=== PATIENT | female | born 1950 | race Two or more races ===

== ENCOUNTER 2019-02-11 18:46 | Inpatient (IN) | payer MEDICARE, OTHER ==
[~2019-02-11] VITALS: Ht 162.6 cm; Wt 100.7 kg
[2019-02-11] MEDS ORDERED: MORPHINE SULFATE 4 MG/ML SYR/VIAL IV ONE (19:00)
[2019-02-11] MEDS ORDERED: SODIUM CHLORIDE 0.9% 1,000 ML IV ONE (19:00)
[2019-02-11] MEDS ORDERED: ONDANSETRON HCL 4 MG/2 ML VIAL IV ONE (19:15)
[2019-02-11] MEDS ORDERED: fentaNYL CITRATE 100 MCG/2 ML VL ONE (19:17)
[2019-02-11] MEDS ORDERED: ANGIOMAX 250 MG VIAL IV ONE ×2 (19:17→20:14)
[2019-02-11] MEDS ORDERED: LIDOCAINE 2%HCL (LOCAL ANESTH.) INJ 20ML MDV ONE (19:18)
[2019-02-11] MEDS ORDERED: IOHEXOL 350 MG/ML 100ML IJ ONE (19:18)
[2019-02-11] MEDS ORDERED: SODIUM CHL 0.9% 50 ML ONE ×2 (19:18→20:14)
[2019-02-11] MEDS ORDERED: MIDAZOLAM HCL 1MG/1ML-2 ML VIAL ONE (19:18)
[2019-02-11 19:33] LABS: Basophils # (auto) 0.1 uL; Basophils % (auto) 0.6 % (0.0-2.0); Eosinophils # (auto) 0.3 uL; Eosinophils % (auto) 2.4 % (0.0-7.0); Hematocrit 44.2 % (36.0-46.0); Hemoglobin 14.3 g/dL (12.2-16.2); Lymphocytes # (auto) 4.3 uL; Lymphocytes % (auto) 32.5 % (10.0-50.0); Mean Corpuscular Hemoglobin 27.9 pg (28.0-32.0); Mean Corpuscular Hgb Conc. 32.4 g/dL (32.0-36.0); Mean Corpuscular Volume 86.1 fL (80.0-100.0); Monocytes % (auto) 7.7 % (0.0-12.0); Neutrophils # (auto) 7.4 uL; Neutrophils % (auto) 56.8 % (37.0-80.0); Nucleated Red Blood Cells % 0.1 %; Platelet Count (auto) 317 10^3/uL (140-450); Red Blood Cells 5.14 10^6/uL (4.0-5.20); Red Cell Distribution Width 14.3 % (11.8-14.3); White Blood Cell 13.1 10^3/uL (4.4-10.8)
[2019-02-11] MEDS ORDERED: ADENOSINE 6 MG/2 ML INJ IV ONE (19:36)
[2019-02-11] MEDS ORDERED: EPTIFIBATIDE INJ (2MG/ML) 10ML VIAL IV ONE (19:37)
[2019-02-11] MEDS ORDERED: NICARDIPINE 25 MG/10 ML VIAL IV ONE (19:41)
[2019-02-11 19:42] LABS: INR 0.89 (0.9-1.15); Partial Thromboplastin Time 25.1 sec (23.64-32.05)
[2019-02-11 19:45] LABS: Albumin 3.9 g/dL (3.4-5.0); Calcium 8.9 mg/dL (8.5-10.1); Magnesium 2.4 mg/dL (1.6-2.6); Potassium 3.8 mmol/L (3.5-5.1)
[2019-02-11] MEDS ORDERED: ATROPINE SULFATE 1 MG/1 ML VIAL ONE ×2 (19:45→19:49)
[2019-02-11 19:47] LABS: BUN/Creatinine Ratio 15.1; Bilirubin, Total 0.7 mg/dL (0.2-1.0); Total Protein 7.5 g/dL (6.4-8.2)
[2019-02-11] MEDS ORDERED: EPINEPHrine HCL 1 MG/10 ML SYRG ONE (19:48)
[2019-02-11] MEDS ORDERED: DOPamine 1600MCG/ML D5W 0 ML IV ONE (19:50)
[2019-02-11] MEDS ORDERED: ASPirin 325 MG TAB ONE (20:20)
[2019-02-11] MEDS ORDERED: TICAGRELOR 90 MG TAB ONE (20:20)
[2019-02-11] MEDS ORDERED: MORPHINE SULF INJ 2 MG/ML SYRINGE 1ML IV PRN (20:45)
[2019-02-11] MEDS ORDERED: NITROGLYCERIN 0.4 MG SL TAB SL PRN (20:45)
[2019-02-11] MEDS ORDERED: SODIUM CHL 0.9% 500 ML IV ONE (20:45)
--- NOTE | 2019-02-11 21:15 | NUR ---
RECEIVED REPORT FROM DRY HEAT CABINET ATTENDANT RN ASSUMED CARE OF FEMALE PATIENT BROUGHT INTO ICU FROM DRY HEAT CABINET ATTENDANT.PT IS ON NC AT 2 L. A&O X4. FOLLOWS COMMANDS. PT IS HOOKED UP TO ICU MONITORS VS WNL. SR 96 , O2 SATURATION IS 96%. RESPIRATIONS EVEN AND UNLABORED. IV LINE TO R AC, IV TO L FOREARM, IVS ARE PATENT AND FLUSHES, NO SS OF REDNESS OR SWELLING. PT STATS PAIN 0/10. NO SS OF DISTRESS, VS WNL. RADIAL PULSES PALPABLE BILATERALLY, LOWER EXTREMITIES PULSES PALPABLE BILATERALLY. Closure of the artery following catheterization was achieved with the Myn[employer] device without complicatiON, CLEAN AND DRY. WILL CONTINUE TO ASSESS FOR BLEEDING AND OR COMPLICATIONS. BED IS IN THE LOWEST POSITION, WHEELS LOCKED, 2 SIDE RAILS UP, CALL LIGHT WITH IN REACH, PT INFORMED HOW TO USE THE CALL LIGHT AND TO CALL IF THE PT NEEDS ANYTHING AT ALL, PT VERBALIZED UNDERSTANDING. PT WITH IN FULL VIEW OF NURSES STATION WILL CONTINUE TO CARE FOR AND MONITOR.
[2019-02-11 21:30] VITALS: BP 155/92
[2019-02-11 22:00] VITALS: BP 155/92
[2019-02-11 23:00] VITALS: BP 155/77
[2019-02-11] MEDS: METOPROLOL TARTRATE 25 MG TAB PO SCH (23:01)
[2019-02-11] MEDS: TICAGRELOR 90 MG TAB PO SCH (23:01)
--- NOTE | 2019-02-11 23:30 | NUR ---
CRITICAL LAB VALUE TROPONIN IS 20.0, MD NOT CALLED DUE TO ELEVATED TROPONIN IS EXPECTED AFTER CARDIAC PROCEDURE. PT IS ASYMPTOMATIC. IF ELEVATED ABOVE 100 WILL CALL MD. WILL CONTINUE TO MONITOR LAB VALUE.
[2019-02-12] VITALS (18 sets, daily range): BP systolic 116–158; BP diastolic 56–94
[2019-02-12] MEDS ORDERED: MORPHINE SULF INJ 2 MG/ML SYRINGE 1ML IV PRN (02:00)
[2019-02-12] MEDS ORDERED: ONDANSETRON ODT 4 MG TAB PO PRN (02:00)
[2019-02-12] MEDS ORDERED: HYDROcodone-ACET 5/325MG TAB PO PRN (02:00)
--- NOTE | 2019-02-12 02:49 | NUR ---
CRITICAL LAB VALUE TROPONIN IS 80.300, NOT CALLED DUE TO ELEVATED TROPONIN IS EX[ECTE
--- NOTE | 2019-02-12 02:52 | NUR ---
CRITICAL LAB VALUE TROPONIN IS 80.300, NOT CALLED DUE TO ELEVATED TROPONIN IS EXPECTED. WILL CONTINUE TO MONITOR LAB VALUE. Addendum: 02/12/19 at 0259 by JEFF WOMACK RN RN CRITICAL LAB VALUE TROPONIN IS 80.300, NOT CALLED DUE TO ELEVATED TROPONIN IS EXPECTED AFTER CARDIAC PROCEDURE. PT IS ASYMPTOMATIC. NO SS OF DISTRESS, VS WNL. IF ELEVATED ABOVE 100 WILL CALL MD. WILL CONTINUE TO MONITOR LAB VALUE
--- NOTE | 2019-02-12 03:40 | NUR ---
HYGIENE PARTIAL BED BATH PROVIDED, LINEN CHANGE PREFORMED, SKIN ASSESSED FOR INTEGRITY CHANGES, NONE NOTED. SUCTION CANISTERS AND TUBING CHANGED. REPOSITIONED PT FOR COMFORT AND SAFETY. PT TOLERATED CARE. WILL CONTINUE TO CARE FOR AND MONITOR.
--- NOTE | 2019-02-12 04:59 | NUR ---
PT WALKED ASSISTED PT TO EDGE OF BED TO LET FEET DANGLE. PT STATED SHE WAS READY TO TRY TO STAND UP AND WALK. MYNX DEVICE IS CLEAN AND DRY. NO BLEEDING OR SWELLING AROUND DECEIVE OR IN THE VICINITY. ASSISTED PT WITH STANDING AND WALKED PT TO BEDROOM COMMODE.PT USED THE REST ROOM AND THEN STATED SHE FELT LIGHT HEADED AND WANTED TO GET BACK INTO BED. ASSISTED PT BACK TO THE BED. PT IS IN BED RESTING WATCHING TV, HOB 30*, SIDE RAILS UP X 3, CALL LIGHT WITH IN REACH, PT STATES NO PAIN, VS WNL, NO SS OF DISTRESS NOTED. WILL TRY AGAIN TO WALK WITH PT. WILL CONTINUE TO CARE FOR AND MONITOR PT.
[2019-02-12 05:16] LABS: Basophils # (auto) 0 uL; Basophils % (auto) 0.4 % (0.0-2.0); Eosinophils # (auto) 0 uL; Eosinophils % (auto) 0.3 % (0.0-7.0); Hematocrit 39.6 % (36.0-46.0); Hemoglobin 13.5 g/dL (12.2-16.2); Lymphocytes # (auto) 1.4 uL; Lymphocytes % (auto) 12.3 % (10.0-50.0); Mean Corpuscular Hemoglobin 28.7 pg (28.0-32.0); Mean Corpuscular Hgb Conc. 34.1 g/dL (32.0-36.0); Mean Corpuscular Volume 84.1 fL (80.0-100.0); Monocytes # (auto) 0.9 uL; Monocytes % (auto) 7.9 % (0.0-12.0); Neutrophils # (auto) 9.2 uL; Neutrophils % (auto) 79.1 % (37.0-80.0); Platelet Count (auto) 244 10^3/uL (140-450); Red Cell Distribution Width 14.1 % (11.8-14.3); White Blood Cell 11.7 10^3/uL (4.4-10.8)
[2019-02-12 05:22] LABS: INR 0.92 (0.9-1.15)
[2019-02-12 05:33] LABS: Alanine Aminotransferase 92 U/L (13-56); Albumin 3.2 g/dL (3.4-5.0); Anion Gap 10 (5-15); Aspartate Aminotransferase 441 U/L (15-37); BUN/Creatinine Ratio 17.1; Blood Urea Nitrogen 13 mg/dL (7-18); Calcium 8.4 mg/dL (8.5-10.1); Carbon Dioxide 23 mmol/L (21-32); Chloride 111 mmol/L (98-107); GFR African American 98 mL/min; GFR Non-African American 81 mL/min; Glucose 108 mg/dL (74-106); Potassium 3.7 mmol/L (3.5-5.1); Sodium 144 mmol/L (136-145)
[2019-02-12 05:43] LABS: Alkaline Phosphatase 66 U/L (45-117); Bilirubin, Total 0.8 mg/dL (0.2-1.0); Total Protein 6.5 g/dL (6.4-8.2)
--- NOTE | 2019-02-12 05:44 | NUR ---
PT COMPLAINS OF CHEST DISCOMFORT PT COMPLAINS OF CHEST DISCOMFORT " A TENDER UNCOMFORTABLE FEELING." PT ALSO COMPLAINS THAT IT FEELS IF SHE CAN NOT CATCH HER BREATH. EKG PREFORMED RESULTS ARE WNL, PT IS ON NC 2 L O2 SATURATION IS 99%. PAGED AND PAIN MEDICATION PROVIDED. WILL REASSESS PT AND CONTINUE TO CARE FOR AND MONITOR
--- NOTE | 2019-02-12 07:23 | NUR ---
SHIFT OPENING NOTE PATIENT AOX4, MOVING ALL EXTREMITIES, HR SR [address], NO VASOPRESSORS AT THIS TIME, LUNGS CLEAR THROUGHOUT 02 SATURATION 97% ON 2LNC, ABDOMEN SOFT AND NONTENDER, NORMAL BOWEL SOUNDS, BLADDER SOFT AND NON DISTENDED, RIGHT GROIN SITE BENIGN, NO BLEEDING OR HEMATOMA NOTED, PALPABLE PULSES BILATERALLY. PLAN OF CARE DISCUSSED WITH PATIENT
[2019-02-12] MEDS: METOPROLOL TARTRATE 25 MG TAB PO SCH ×2 (10:01→22:30)
[2019-02-12] MEDS: ATORVASTATIN 20 MG TAB PO SCH (10:02)
[2019-02-12] MEDS: ASPirin 81 mg TAB PO SCH (10:02)
[2019-02-12] MEDS: TICAGRELOR 90 MG TAB PO SCH ×2 (10:02→21:21)
--- NOTE | 2019-02-12 10:32 | NUR ---
DR. Rahul CRUZ AT BEDSIDE
[2019-02-12] MEDS: SODIUM CHLORIDE 0.9% 1,000 ML IV SCH (10:45)
--- NOTE | 2019-02-12 11:11 | NUR ---
PARTIAL LINEN CHANGE PERFORMED AT THIS TIME
--- NOTE | 2019-02-12 11:45 | NUR ---
PATIENT TRANSFERRED TO ROOM 278B VIA ACLS GUIDELINES. FALL PRECAUTIONS IN PLACE
--- NOTE | 2019-02-12 11:52 | NUR ---
ICU patient trans to floor SBAR received from Artur POSADA. Patient transferred to bed 278B via wheelchair on cardiac technologist. All patient personal belongings transferred with patient to receiving floor. Patient care transferred to primary RNYasmine. Patient acclimated to room and unit policies. Bed in lowest, locked position with side rails up x2 and call light within reach. Family member at bedside. Will continue to monitor patient Q1h and prn.
--- NOTE | 2019-02-12 18:10 | NUR ---
IV Infiltrated IV right AC removed, catheter intact and pressure dressing applied.
--- NOTE | 2019-02-12 18:25 | NUR ---
SAFEGUARD Safeguard right groin removed. No S/S of bleeding or hemorrhage. Will continue to monitor.
--- NOTE | 2019-02-12 19:04 | NUR ---
CLOSING NOTE Endorsed care of patient to NOC RN, Keith. Patient resting in bed, family at bedside. No S/S of distress noted.
--- NOTE | 2019-02-12 20:00 | NUR ---
OPENING NOTE RECEIVED REPORT FROM DAYSHIFT RN. ASSUMING ROLE OF CARE OF PATIENT AT THIS TIME. PATIENT SHOWING NO SIGN OF DISTRESS, SHORTNESS OF BREATH, AND PATIENT DENIES ANY PAIN AT THIS TIME. PATIENT'S FAMILY AT BEDSIDE. PATIENT EDUCATED ON PLAN OF CARE FOR THE NIGHT AND PATIENT VERBALIZED UNDERSTANDING. BED LOWERED, CALL LIGHT WITHIN REACH, AND PATIENT WILL BE ROUNDED ON EVERY HOUR AND NEEDED.
[2019-02-13 05:00] VITALS: BP 129/62
--- NOTE | 2019-02-13 07:30 | NUR ---
Opening Shift Note Assumed care of patient, awake, alert, and oriented x4 and patient is lying supine in bed. No S/S of distress/SOB, but patient is reporting lower left abdominal cramping/pain of 2/10, and states she feels like she is going to have a bowel movement. IV is in left AC 20 gauge asymptomatic, intact, patent, and infusing normal saline at 50mL/hour. Bed is locked and in lowest position and call light is within reach. Instructed on POC and to call for assist PRN, and patient verbalized understanding. Will continue to monitor for changes Q1hr and PRN.
[2019-02-13 08:30] VITALS: BP 131/64
[2019-02-13] MEDS: SODIUM CHLORIDE 0.9% 1,000 ML IV SCH (10:18)
[2019-02-13] MEDS: ASPirin 81 mg TAB PO SCH (10:18)
[2019-02-13] MEDS: TICAGRELOR 90 MG TAB PO SCH (10:19)
[2019-02-13] MEDS: ATORVASTATIN 20 MG TAB PO SCH (10:19)
[2019-02-13] MEDS: METOPROLOL TARTRATE 25 MG TAB PO SCH ×2 (11:07→21:07)
[2019-02-13 12:23] VITALS: BP 154/90
--- NOTE | 2019-02-13 12:30 | NUR ---
IV removal IV DC'd with clean sterile technique, catheter fully intact. Pressure dressing applied to site. Patient tolerated well.
--- NOTE | 2019-02-13 13:00 | NUR ---
IV insertion IV access obtained, via clean sterile technique by inserting 20 gauge catheter at left hand after 1 attempt. IV secured properly. No trauma to site. Patient tolerated well.
--- NOTE | 2019-02-13 13:50 | NUR ---
Run of V-TACH Mika reported patient had a run of V-Tach of 8 beats at 1350. Patient is lying supine in bed awake, and no distress is noted at this time. Paged Dr. Rahul Morse, Hydrator; new orders received. Will continue to monitor patient Q1.
[2019-02-13 16:16] VITALS: BP 147/87
--- NOTE | 2019-02-13 16:30 | NUR ---
Dr. Jalen Morse at bedside. New orders received.
[2019-02-13] MEDS ORDERED: AMIODARONE HCL 200 MG TAB PO ONE (17:15)
--- NOTE | 2019-02-13 19:41 | NUR ---
OPENING NOTE RECEIVED REPORT FROM DAYSHIFT RN. ASSUMING ROLE OF CARE OF PATIENT AT THIS TIME. PATIENT SHOWING NO SIGNS OF DISTRESS, SHORTNESS OF BREATH, AND PATIENT DENIES ANY PAIN AT THIS TIME. PATIENT HAS VISITORS AT BEDSIDE AND APPEARS TO BE IN A PLEASANT MOOD. PATIENT EDUCATED ON PLAN OF CARE FOR THE NIGHT AND PATIENT VERBALIZED UNDERSTANDING. BED LOWERED, CALL LIGHT WITHIN REACH, AND PATIENT WILL BE ROUNDED ON EVERY HOUR AND NEEDED.
[2019-02-13] MEDS: AMIODARONE HCL 200 MG TAB PO SCH (21:08)
[2019-02-13 21:50] VITALS: BP 169/93
[2019-02-13] MEDS ORDERED: TICAGRELOR 90 MG TAB PO ONE (22:00)
[2019-02-13 23:02] VITALS: BP 157/112
[2019-02-14] MEDS: SODIUM CHLORIDE 0.9% 1,000 ML IV SCH (02:45)
[2019-02-14 05:43] VITALS: BP 123/70
[2019-02-14] MEDS ORDERED: MORPHINE SULF INJ 2 MG/ML SYRINGE 1ML IV PRN (06:45)
--- NOTE | 2019-02-14 08:17 | NUR ---
Opening Shift Note Assumed care of patient, awake, alert, and oriented x4. No S/S of distress/SOB or pain. IV is in left hand 20 gauge asymptomatic, intact, patent, and infusing normal saline at 50 mL/hour. Bed locked and in lowest position and call light is within reach. Instructed on POC and to call for assist PRN, and patient verbalized understanding. Will continue to monitor for changes Q1hr and PRN.
[2019-02-14 08:33] VITALS: BP 158/61
[2019-02-14] MEDS: METOPROLOL TARTRATE 25 MG TAB PO SCH (09:09)
[2019-02-14] MEDS: ASPirin 81 mg TAB PO SCH (09:09)
[2019-02-14] MEDS: AMIODARONE HCL 200 MG TAB PO SCH (09:10)
[2019-02-14] MEDS: ATORVASTATIN 20 MG TAB PO SCH (09:10)
[2019-02-14] MEDS ORDERED: TICAGRELOR 60 MG TAB PO SCH (10:00)
[2019-02-14 10:39] VITALS: BP 158/61
--- NOTE | 2019-02-14 12:00 | NUR ---
Discharge instructions given as ordered. Encourage to follow up with PMD as instructed. All questions and concerns addressed. Patient verbalized understanding. Medication reconciliation form completed and copy given to patient. IV removed with catheter intact, pressure dressing applied. Telemetry unit returned to [facility]. Patient taken to vehicle via wheelchair with all personal belongings, accompanied by staff and family member. No distress noted at time of departure.
[2019-02-15] MEDS ORDERED: TICAGRELOR 90 MG TAB PO SCH (10:00)
== END 2019-02-14 11:00 | disposition home or self-care (01) | DRG 247 ==
LOC: ER 18:59 → ICU WEST 20:00 → TELE-WESTW 02-12 11:45
PROVIDERS: ADMIT Specialist; ATTEND Specialist
PROC: 027035Z Dilation of Coronary Artery, One Artery with Two Drug-eluting Intraluminal Devices, Percutaneous Approach (ICD-10-PCS; principal; 2019-02-11)
PROC: B2111ZZ Fluoroscopy of Multiple Coronary Arteries using Low Osmolar Contrast (ICD-10-PCS; 2019-02-11)
PROC: 4A133BC Monitoring of Arterial Pressure, Coronary, Percutaneous Approach (ICD-10-PCS; 2019-02-11)
PROC: 4A023N8 Measurement of Cardiac Sampling and Pressure, Bilateral, Percutaneous Approach (ICD-10-PCS; 2019-02-11)
PROC: 02C03ZZ Extirpation of Matter from Coronary Artery, One Artery, Percutaneous Approach (ICD-10-PCS; 2019-02-11)
PROC: B41F1ZZ Fluoroscopy of Right Lower Extremity Arteries using Low Osmolar Contrast (ICD-10-PCS; 2019-02-11)
PROC: 3E033GC Introduction of Other Therapeutic Substance into Peripheral Vein, Percutaneous Approach (ICD-10-PCS; 2019-02-11)
PROC: B240ZZ3 Ultrasonography of Single Coronary Artery, Intravascular (ICD-10-PCS; 2019-02-11)
DX: I21.19 ST elevation (STEMI) myocardial infarction involving other coronary artery of inferior wall (principal); I47.2 Ventricular tachycardia; E78.5 Hyperlipidemia, unspecified; I10 Essential (primary) hypertension; E66.9 Obesity, unspecified; K21.9 Gastro-esophageal reflux disease without esophagitis; Z68.38 Body mass index [BMI] 38.0-38.9, adult; Z88.5 Allergy status to narcotic agent; Z88.1 Allergy status to other antibiotic agents; Z88.8 Allergy status to other drugs, medicaments and biological substances; Z90.49 Acquired absence of other specified parts of digestive tract; Z90.13 Acquired absence of bilateral breasts and nipples
CPT/HCPCS: 36415; 75710; 80053; 83735; 84484; 85025; 85610; 85730; 87081; 92928; 92973; 93005; 93458; 94761; 96361; 96374; 96375; 99152; C1874; G0378; J0153; J0461; J2250; J2405; Q0162

== ENCOUNTER 2022-10-09 12:45 | Emergency (ER) | payer MEDICARE, OTHER ==
[~2022-10-09] VITALS: Ht 162.6 cm; Wt 98.6 kg
[2022-10-09] MEDS ORDERED: cloNIDine HCL 0.1 MG TAB PO ONE (13:00)
[2022-10-09] MEDS ORDERED: amLODIPine BESYLATE 5 MG TAB PO ONE (13:15)
[2022-10-09 13:57] LABS: Basophils # (auto) 0.1 10 ^3/uL (0-0.2); Basophils % (auto) 0.7 % (0.0-2.0); Eosinophils # (auto) 0.2 10 ^3/uL (0-0.8); Eosinophils % (auto) 2.3 % (0.0-7.0); Hematocrit 46.4 % (36.0-46.0); Hemoglobin 15.1 g/dL (12.2-16.2); Lymphocytes # (auto) 1.8 10 ^3/uL (0.4-5.4); Lymphocytes % (auto) 20.6 % (10.0-50.0); Mean Corpuscular Hgb Conc. 32.5 g/dL (32.0-36.0); Mean Corpuscular Volume 86.1 fL (80.0-100.0); Monocytes # (auto) 0.5 10 ^3/uL (0-1.3); Monocytes % (auto) 5.6 % (0.0-12.0); Neutrophils # (auto) 6.1 10 ^3/uL (1.6-8.6); Neutrophils % (auto) 70.8 % (37.0-80.0); Nucleated Red Blood Cells % 0.1 %; Red Blood Cells 5.39 10^6/uL (4.0-5.20); Red Cell Distribution Width 13.8 % (11.8-14.3); White Blood Cell 8.6 10^3/uL (4.4-10.8)
[2022-10-09 14:23] LABS: Albumin 4.2 g/dL (3.4-5.0); Bilirubin, Total 0.6 mg/dL (0.2-1.0); Calcium 9.6 mg/dL (8.5-10.1); Potassium 4.4 mmol/L (3.5-5.1); Total Protein 7.3 g/dL (6.4-8.2)
[2022-10-09] MEDS ORDERED: CLON0.1T PO (14:39)
[2022-10-09 15:37] VITALS: BP 141/78
== END 2022-10-09 15:38 | disposition home or self-care (01) ==
LOC: EDBD 12:45 → ER 12:45
DX: I16.1 Hypertensive emergency (principal); I10 Essential (primary) hypertension; R51.9 Headache, unspecified; E78.5 Hyperlipidemia, unspecified; Z88.1 Allergy status to other antibiotic agents; Z88.6 Allergy status to analgesic agent
CPT/HCPCS: 36415; 70450; 80053; 84484; 85025